=== PATIENT | male | born 1950 ===

== ENCOUNTER 2023-02-27 04:23 | Day surgery (SDC) | payer OTHER, BC ==
[2023-02-24 10:07] VITALS: BMI 25.4
[2023-02-27] MEDS ORDERED: BUPIVACAINE HCL/PF 0.5% (5MG/ML) 10 ML VIAL ONE (12:07)
[2023-02-27] MEDS ORDERED: LIDOCAINE HCL 2% (20ML MULTI-DOSE VIAL) ONE (12:17)
[2023-02-27] MEDS ORDERED: PROPOFOL 20 ML ONE (12:23)
[2023-02-27] MEDS ORDERED: MIDAZOLAM HCL 2 MG/2 ML SINGLE DOSE VIAL ONE (12:23)
[2023-02-27] MEDS ORDERED: LIDOCAINE HCL/PF 2% SDV 5ML VIAL ONE (12:30)
[2023-02-27] MEDS ORDERED: ceFAZolin SODIUM 1 GM VIAL IVPB ONE (12:32)
[2023-02-27] MEDS ORDERED: SODIUM CHLORIDE 0.9% P/F 10 ML VIAL IJ ONE (12:33)
[2023-02-27] MEDS ORDERED: ceFAZolin SODIUM 1 GM VIAL ONE (12:33)
[2023-02-27] MEDS ORDERED: ONDANSETRON 4 MG/2 ML VIAL ONE (12:39)
[2023-02-27] MEDS ORDERED: DEXAMETHASONE SOD PHOSPHATE 4 MG/1 ML VIAL ONE (12:39)
[2023-02-27] MEDS ORDERED: LIDOCAINE HCL/PF 2% SDV 5ML VIAL INF ONE (12:43)
[2023-02-27] MEDS ORDERED: BUPIVACAINE HCL/PF 0.5% (5MG/ML) 10 ML VIAL IJ ONE ×2 (12:43)
[2023-02-27] MEDS ORDERED: LIDOCAINE HCL 2% (50ML VIAL) INF ONE ×2 (12:43)
[2023-02-27] MEDS ORDERED: PROMETHAZINE HCL 25 MG/1 ML VIAL IVPB PRN (14:30)
[2023-02-27] MEDS ORDERED: ONDANSETRON 4 MG/2 ML VIAL IVPUSH PRN (14:30)
[2023-02-27] MEDS ORDERED: LACTATED RINGERS SOLUTION 1,000 ML IV SCH (14:30)
[2023-02-27 17:20] VITALS: RESP 20; TEMP 97.7
[2023-02-27 17:23] VITALS: BP 140/75; PULSE 72
== END 2023-02-27 16:32 | disposition home or self-care (01) ==
LOC: JASU-SURG 04:23
PROVIDERS: ATTEND Urology
PROC: 0VNS0ZZ Release Penis, Open Approach (ICD-10-PCS; principal; 2023-02-27 11:30)
DX: N48.6 Induration penis plastica (principal)
CPT/HCPCS: 94760